=== PATIENT | male | born 1995 | race Caucasian/White ===

== ENCOUNTER 2022-01-05 02:54 | Emergency (ER) | payer SELFPAY ==
[2022-01-05 02:55] VITALS: BP 155/106; PULSE 113; RESP 18; TEMP 36.5; O2SAT 96; BMI 31.2
--- NOTE | 2022-01-05 03:32 | CT_ITS ---
EXAM: CT HEAD WITHOUT INTRAVENOUS CONTRAST CLINICAL INDICATION: head injury TECHNIQUE: Multiple axial images were obtained of the head without intravenous contrast. This CT exam was performed using one or more of the following dose reduction techniques: automated exposure control, adjustment of the mA and/or kV according to patient size, and/or use of iterative reconstruction technique. This report was created using [employer] report generation technology. COMPARISON: None. FINDINGS: BRAIN AND EXTRA-AXIAL SPACES: Unremarkable. No intra- or extra-axial hemorrhage. No evidence of acute infarct. No intracranial mass or mass effect. There is preservation of the calvo/white matter interface. Posterior fossa structures are unremarkable. Ventricles are appropriate for age. No hydrocephalus. Basal cisterns are patent. BONES/JOINTS: Unremarkable. No discrete lytic or blastic abnormalities. SINUSES: Unremarkable as visualized. Clear. MASTOID AIR CELLS: Unremarkable. Clear. ORBITS: Visualized globes, extraocular muscles, optic nerves and retrobulbar fat appear unremarkable. CT/Brain/Head without Contrast IMPRESSION: Negative head/brain CT without intravenous contrast. Electronically Signed: Kimo Brasher MD at 3:56 EDT ,
--- NOTE | 2022-01-05 03:32 | CT_ITS ---
EXAM: CT CERVICAL SPINE WITHOUT INTRAVENOUS CONTRAST CLINICAL INDICATION: injury TECHNIQUE: Helically acquired images were obtained of the cervical spine without intravenous contrast. 2D reformatted images were reviewed. This CT exam was performed using one or more of the following dose reduction techniques: automated exposure control, adjustment of the mA and/or kV according to patient size, and/or use of iterative reconstruction technique. This report was created using [employer] report generation technology. COMPARISON: None. FINDINGS: VERTEBRAE: Unremarkable. No fracture. No traumatic subluxation. No discrete lytic or blastic abnormality. Normal alignment. Normal craniocervical junction and cervicothoracic junction. DISCS/SPINAL CANAL/NEURAL FORAMINA: Unremarkable. Disc heights are preserved. No critical stenosis. SOFT TISSUES: Unremarkable. No prevertebral soft tissue swelling. LYMPH NODES: Unremarkable. No cervical adenopathy. LUNG APICES: Unremarkable as visualized. Clear. CT/Spine Cervical without Contras IMPRESSION: No evidence of acute cervical spinal fracture or spondylolisthesis. Electronically Signed: Kimo Brasher MD at 3:59 EDT ,
--- NOTE | 2022-01-05 03:40 | RAD_ITS ---
EXAM: XR LUMBOSACRAL SPINE, 4 OR 5 VIEWS CLINICAL INDICATION: pain TECHNIQUE: Frontal, lateral and bilateral oblique views of the lumbar spine. This report was created using [employer] report generation technology. COMPARISON: None. FINDINGS: VERTEBRAE: L5 pars defects with grade 1 anterolisthesis of L5 on S1. Preserved vertebral body height. No fracture. Preservation of the normal lumbar lordosis. No significant facet arthropathy. DISC SPACES: No acute findings. Disc spaces are maintained. GASTROINTESTINAL TRACT: Unremarkable as visualized. Included bowel gas pattern is non-obstructive. RAD/L/S Spine Min 4 Views IMPRESSION: 1. No acute abnormalities identified involving the lumbar spine. 2. L5 pars defects with grade 1 anterolisthesis of L5 on S1. Electronically Signed: Kimo Brasher MD at 4:23 EDT ,
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
[2022-01-05 05:15] VITALS: BP 117/90; PULSE 78; RESP 15; O2SAT 99
[2022-01-05 05:16] VITALS: O2SAT 99
== END 2022-01-05 05:16 | disposition home or self-care (01) ==
LOC: ED 04:42
PROVIDERS: Emergency Provider Emergency Medicine; Visit Provider Emergency Medicine
DX: S06.9X9A Unspecified intracranial injury with loss of consciousness of unspecified duration, initial encounter (principal); F41.9 Anxiety disorder, unspecified; Z79.899 Other long term (current) drug therapy; M43.17 Spondylolisthesis, lumbosacral region; Y04.0XXA Assault by unarmed brawl or fight, initial encounter
CPT/HCPCS: 70450; 72110; 72125; 99282